=== PATIENT | female | born 1975 | race Caucasian/White ===

== ENCOUNTER 2017-01-28 06:27 | Observation (INO) | payer OTHER ==
[~2017-01-28] VITALS: Ht 162.6 cm; Wt 91.6 kg
[~2017-01-28 06:27] MED LIST: CORTISPORIN EAR10 ML BOTH EARS
[2017-01-28 07:30] LABS: MCH 29.5 PG (29.0-34.0); MCHC 33.9 G/DL (30.0-36.0); MCV 87.1 FL (83-99); MEAN PLAT.VOLUME 11.4 uM^3 (9.5-12.4); PLATELET COUNT 268 K/uL (156-360); RBC DIS.WIDTH-CV 12.6 % (11.8-14.6); RBC DIS.WIDTH-SD 40.1 % (39-53); WHITE BLOOD COUNT 10.7 K/uL (4.1-10.2)
[2017-01-28 07:33] LABS: CARBON DIOXIDE (BICARBONATE) 24.5 MEQ/L (20-31)
[2017-01-28 07:37] LABS: ADD MIUA? YES; BILIRUBIN NEGATIVE; BLOOD MODERATE; COLOR STRAW ((YELLOW)); GLUCOSE (STRIP) >=500; KETONES NEGATIVE; LEUKOCYTES SMALL; NITRITE NEGATIVE; PROTEIN (STRIP) NEGATIVE; SPECIFIC GRAVITY 1.026 (1.000-1.030); UROBILINOGEN 0.2 MG/DL (0.2-1.0)
[2017-01-28 07:38] LABS: CHLORIDE 89 mEq/L (99-109); POTASSIUM 4.6 mEq/L (3.7-5.4); SODIUM 125 mEq/L (136-147)
[2017-01-28 07:39] LABS: BACTERIA NONE SEEN /HPF; EPITHELIAL CELLS RARE /HPF; MUCUS TRACE /LPF; RED BLOOD CELLS 0-5 /HPF (0-5); UCUL ADDED? NO; WHITE BLOOD CELLS 0-5 /HPF (0-5)
[2017-01-28 07:42] LABS: TOTAL BILIRUBIN 0.3 mg/dL (0.0-1.0)
[2017-01-28 07:43] LABS: ALKALINE PHOSPHATASE 137 IU/L (3-129)
[2017-01-28 07:44] LABS: GFR ESTIMATE (CALCULATED) 48 mL/min/
[2017-01-28 07:45] LABS: UREA NITROGEN (BUN) 14 mg/dL (9-23)
[2017-01-28 07:53] LABS: QUANTITATIVE HCG < 4.0 MIU/ML
[2017-01-28 07:54] LABS: GLUCOSE 876 mg/dL (70-99)
[2017-01-28] MEDS ORDERED: TERCONAZOLE45 GM VG (09:07)
[2017-01-28] MEDS ORDERED: SPIRONOLACTONE50 MG PO (09:09)
[2017-01-28] MEDS ORDERED: METFORMIN HCL500 M1 PO (09:10)
[2017-01-28] MEDS ORDERED: INVOKANA300 MG PO (09:11)
[2017-01-28 09:26] LABS: Estimated Average Glucose 326 mg/dL (70-123)
[2017-01-28 09:35] LABS: POINT-OF-CARE METER ID UU13113747
[2017-01-28 09:37] LABS: TROP-I INTERPRETATION NEGATIVE; TROPONIN-I < 0.01 ng/mL (0.0-0.30)
[2017-01-28 12:07] LABS: POTASSIUM 4.3 mEq/L (3.7-5.4)
[2017-01-28 12:08] LABS: CHLORIDE 102 mEq/L (99-109); SODIUM 133 mEq/L (136-147)
[2017-01-28 12:10] LABS: ANION GAP 10 MEQ/L (2-14)
[2017-01-28 12:12] LABS: GFR ESTIMATE (CALCULATED) > 59 mL/min/
[2017-01-28 12:13] LABS: UREA NITROGEN (BUN) 11 mg/dL (9-23)
[2017-01-28 12:14] LABS: GLUCOSE 418 mg/dL (70-99)
[2017-01-28 13:34] VITALS: BP 134/74
[2017-01-28 15:27] LABS: ANION GAP 7 MEQ/L (2-14); CHLORIDE 103 MEQ/L (99-109); POTASSIUM 3.6 MEQ/L (3.7-5.4); SAMPLE HEMOLYSIS CHECK 0; SAMPLE ICTERIC CHECK 0; SAMPLE LIPEMIA CHECK 0; SODIUM 138 MEQ/L (136-147)
[2017-01-28 15:32] LABS: GFR ESTIMATE (CALCULATED) > 59 mL/min/; GLUCOSE 325 mg/dL (70-99); UREA NITROGEN (BUN) 11 mg/dL (9-23)
[2017-01-28 15:37] LABS: TROP-I INTERPRETATION NEGATIVE; TROPONIN-I < 0.01 ng/mL (0.0-0.30)
[2017-01-28 16:26] VITALS: BP 110/65
[2017-01-28 20:00] VITALS: BP 108/54
[2017-01-28 20:16] LABS: ANION GAP 6 MEQ/L (2-14); CHLORIDE 104 MEQ/L (99-109); POTASSIUM 4.1 MEQ/L (3.7-5.4); SAMPLE HEMOLYSIS CHECK 0; SAMPLE ICTERIC CHECK 0; SAMPLE LIPEMIA CHECK 0; SODIUM 136 MEQ/L (136-147)
[2017-01-28 20:21] LABS: GFR ESTIMATE (CALCULATED) > 59 mL/min/; GLUCOSE 325 mg/dL (70-99); UREA NITROGEN (BUN) 11 mg/dL (9-23)
[2017-01-28 21:02] LABS: TROP-I INTERPRETATION NEGATIVE; TROPONIN-I < 0.01 ng/mL (0.0-0.30)
[2017-01-28 21:35] LABS: POINT-OF-CARE METER ID UU13113700
[2017-01-29 00:20] VITALS: BP 107/65
[2017-01-29 01:09] LABS: CHLORIDE 107 mEq/L (99-109); POTASSIUM 4.1 mEq/L (3.7-5.4); SODIUM 137 mEq/L (136-147)
[2017-01-29 01:11] LABS: GLUCOSE 307 mg/dL (70-99)
[2017-01-29 01:13] LABS: ANION GAP 7 MEQ/L (2-14)
[2017-01-29 01:15] LABS: GFR ESTIMATE (CALCULATED) > 59 mL/min/
[2017-01-29 01:16] LABS: UREA NITROGEN (BUN) 11 mg/dL (9-23)
[2017-01-29 03:31] LABS: POINT-OF-CARE METER ID UU14162513
[2017-01-29 04:33] VITALS: BP 142/56
[2017-01-29 06:26] LABS: POINT-OF-CARE METER ID UU13113831
[2017-01-29 06:27] LABS: MCH 29.2 PG (29.0-34.0); MCHC 33.5 G/DL (30.0-36.0); MCV 87.2 FL (83-99); PLATELET COUNT 232 K/uL (156-360); RBC DIS.WIDTH-CV 12.4 % (11.8-14.6); RBC DIS.WIDTH-SD 39.5 % (39-53); WHITE BLOOD COUNT 10.7 K/uL (4.1-10.2)
[2017-01-29 06:28] LABS: RED BLOOD COUNT 4.93 M/uL (3.80-5.20)
[2017-01-29 06:33] LABS: ANION GAP 6 MEQ/L (2-14); CHLORIDE 107 MEQ/L (99-109); POTASSIUM 4.2 MEQ/L (3.7-5.4); SAMPLE HEMOLYSIS CHECK 0; SAMPLE ICTERIC CHECK 0; SAMPLE LIPEMIA CHECK 0; SODIUM 137 MEQ/L (136-147)
[2017-01-29 06:38] LABS: GFR ESTIMATE (CALCULATED) > 59 mL/min/; GLUCOSE 283 mg/dL (70-99); UREA NITROGEN (BUN) 9 mg/dL (9-23)
[2017-01-29 07:23] VITALS: BP 121/75
[2017-01-29] MEDS ORDERED: LEVEMIR FL100 UNIT/1 SC (09:27)
[2017-01-29] MEDS ORDERED: NOVOLOG PE100 UNITS/ SC (09:27)
[2017-01-29 09:52] LABS: ANION GAP 5 MEQ/L (2-14); CHLORIDE 104 MEQ/L (99-109); GFR ESTIMATE (CALCULATED) > 59 mL/min/; GLUCOSE 269 mg/dL (70-99); POTASSIUM 3.9 MEQ/L (3.7-5.4); SAMPLE HEMOLYSIS CHECK 0; SAMPLE ICTERIC CHECK 0; SAMPLE LIPEMIA CHECK 0; SODIUM 136 MEQ/L (136-147); UREA NITROGEN (BUN) 9 mg/dL (9-23)
[2017-01-29 10:04] LABS: POINT-OF-CARE METER ID UU13113747
[2017-01-29 10:04] LABS: POINT-OF-CARE METER ID UU13113747
== END 2017-01-29 09:55 | disposition home or self-care (01) ==
LOC: EME 06:27 → EDOF 08:44 → 5WEST 13:01
PROVIDERS: Emergency Medicine; Hospitalist; Internal Medicine
DX: E11.65 Type 2 diabetes mellitus with hyperglycemia (principal); Z91.19 Patient's noncompliance with other medical treatment and regimen; B37.0 Candidal stomatitis; F17.200 Nicotine dependence, unspecified, uncomplicated; Q03.9 Congenital hydrocephalus, unspecified; Z98.2 Presence of cerebrospinal fluid drainage device; E86.0 Dehydration
CPT/HCPCS: 80048; 80048 91; 80053; 81003; 82803; 82948; 83036; 83605; 84100; 84484; 84702; 85027; 93005; 99281; 99285; G0378; J1815; J7030; J7050